=== PATIENT | male | born 1980 | race Caucasian/White ===

== ENCOUNTER 2022-05-18 10:47 | Inpatient (IN) | payer OTHER ==
[~2022-05-18] VITALS: Ht 157.5 cm; Wt 61.0 kg
[2022-05-18] MEDS ORDERED: ARIP15TA27 PO (11:37)
[2022-05-18] MEDS ORDERED: BENZ2TAB76 PO (11:37)
[2022-05-18 12:04] LABS: BASOPHILS % (AUTO) 1.1 % (0.0-2.0); EOSINOPHILS % (AUTO) 0.7 % (1.0-6.0); HEMATOCRIT 43.8 % (41-53); HEMOGLOBIN 14.8 g/dL (13.5-17.5); LYMPHOCYTES # (AUTO) 0.9 K/uL (1.0-4.8); LYMPHOCYTES % (AUTO) 16.3 % (22.0-44.0); MEAN CORPUSCULAR HEMOGLOBIN 31.1 pg (26.0-34.0); MEAN CORPUSCULAR HGB CONC 33.7 G/dL (31.0-37.0); MEAN CORPUSCULAR VOLUME 92 fL (80-100); MONOCYTES # (AUTO) 0.4 K/uL (0.1-1.0); NEUTROPHILS # (AUTO) 4.3 K/uL (1.8-7.7); NEUTROPHILS % (AUTO) 74.9 % (40.0-70.0); PLATELET COUNT (AUTO) 178 K/uL (150-450); RED BLOOD CELL COUNT(AUTO) 4.74 MIL/uL (4.50-5.90); RED CELL DISTRIBUTION WIDTH 13.4 % (11.5-14.5)
[2022-05-18 12:19] LABS: ANION GAP 6 mmol/L (8-16); CALCIUM, TOTAL 8.8 mg/dL (8.8-10.5); CARBON DIOXIDE 28 mmol/L (22-29); CHLORIDE 103 mmol/L (98-107); CREATININE 0.78 mg/dL (0.60-1.30); GLUCOSE,RANDOM 91 mg/dL (70-110); SODIUM SERUM 137 mmol/L (136-145); UREA NITROGEN, BLOOD 13 mg/dL (7-18)
[2022-05-18 12:21] LABS: GLOMERULAR FILTR. RATE CALC > 60 mL/min (>60)
[2022-05-18 12:26] LABS: ALANINE AMINOTRANSFERASE 22 U/L (12-78); ALBUMIN 4.2 g/dL (3.4-5.0); ALKALINE PHOSPHATASE 37 U/L (46-116); ASPARTATE AMINOTRANSFERASE 19 U/L (15-37); BILIRUBIN,TOTAL 0.5 mg/dL (0.1-1.0); TOTAL PROTEIN, SERUM 6.8 g/dL (6.4-8.2)
[2022-05-18] MEDS ORDERED: ONDANSETRON HCL 4 MG TABLET PO PRN (12:45)
[2022-05-18] MEDS ORDERED: MAGNESIUM HYDROXIDE SUSPENSION 30 ML UDCUP PO PRN (12:45)
[2022-05-18] MEDS ORDERED: MAG HYDROX/AL HYDROX/SIMETH ES 30 ML SUSPENSION UDCUP PO PRN (12:45)
[2022-05-18] MEDS ORDERED: ALBUTEROL SULFATE HFA 90 MCG/PUFF 8 GM INHALER IH PRN (12:45)
[2022-05-18] MEDS ORDERED: DOCUSATE SODIUM 100 MG CAPSULE PO PRN (12:45)
[2022-05-18] MEDS ORDERED: GuaiFENesin/D-METHORPHAN [SUGAR-FREE] 200-20MG/10 ML SYRUP UDCUP PO PRN (12:45)
[2022-05-18] MEDS ORDERED: PETROLATUM,WHITE 28 GM JELLY TP PRN (12:45)
[2022-05-18] MEDS ORDERED: IBUPROFEN 400 MG TABLET PO PRN (12:45)
[2022-05-18 14:45] LABS: COVID AG,FIA SOURCE NASOPHARYNGEAL
[2022-05-18 20:08] VITALS: BP 127/69
[2022-05-18] MEDS: ARIPiprazole 15 MG TABLET PO SCH (20:57)
[2022-05-18] MEDS: BENZTROPINE MESYLATE 2 MG TABLET PO SCH (20:57)
[2022-05-18 22:33] LABS: AMPHET/METH SCREEN,URINE NEGATIVE (NEGATIVE); BARBITURATE SCREEN, URINE NEGATIVE (NEGATIVE); BENZODIAZEPINES SCREEN,URINE NEGATIVE (NEGATIVE); CANNABINOID SCREEN,URINE NEGATIVE (NEGATIVE); COCAINE SCREEN,URINE NEGATIVE (NEGATIVE); METHADONE SCREEN, URINE NEGATIVE (NEGATIVE); OPIATE SCREEN,URINE NEGATIVE (NEGATIVE)
[2022-05-18 22:35] LABS: PHENCYCLIDINE SCREEN,URINE NEGATIVE (NEGATIVE)
[2022-05-19] MEDS: ACETAMINOPHEN 325 MG TABLET PO PRN ×3 (01:35→22:54)
[2022-05-19 04:06] VITALS: BP 108/72
[2022-05-19 07:50] VITALS: BP 110/74
[2022-05-19] MEDS: ARIPiprazole 15 MG TABLET PO SCH ×2 (08:55→20:21)
[2022-05-19] MEDS: BENZTROPINE MESYLATE 2 MG TABLET PO SCH ×2 (08:55→20:21)
[2022-05-19 15:07] VITALS: BP 118/76
[2022-05-19 19:55] VITALS: BP 129/76
[2022-05-19] MEDS ORDERED: MELATONIN 3 MG TABLET PO PRN (22:45)
[2022-05-20 04:53] VITALS: BP 115/83
[2022-05-20] MEDS ORDERED: QUEtiapine FUMARATE 25 MG TABLET PO PRN (07:30)
[2022-05-20 07:37] VITALS: BP 98/73
[2022-05-20] MEDS: ARIPiprazole 15 MG TABLET PO SCH ×2 (08:05→21:00)
[2022-05-20] MEDS: ACETAMINOPHEN 325 MG TABLET PO PRN (08:05)
[2022-05-20] MEDS: BENZTROPINE MESYLATE 2 MG TABLET PO SCH ×2 (08:05→21:00)
[2022-05-20 15:32] VITALS: BP 113/71
[2022-05-20 19:55] VITALS: BP 138/85
[2022-05-21 04:35] VITALS: BP 115/75
[2022-05-21 08:13] VITALS: BP 104/75
[2022-05-21] MEDS: BENZTROPINE MESYLATE 2 MG TABLET PO SCH ×2 (08:45→20:25)
[2022-05-21] MEDS: ARIPiprazole 15 MG TABLET PO SCH ×2 (08:45→20:25)
[2022-05-21 15:49] VITALS: BP 119/74
[2022-05-21] MEDS: ACETAMINOPHEN 325 MG TABLET PO PRN (20:19)
[2022-05-22 05:39] VITALS: BP 116/76
[2022-05-22 07:28] VITALS: BP 120/77
[2022-05-22] MEDS: BENZTROPINE MESYLATE 2 MG TABLET PO SCH ×2 (09:00→21:00)
[2022-05-22] MEDS: ARIPiprazole 15 MG TABLET PO SCH ×2 (09:00→21:00)
[2022-05-22 15:03] VITALS: BP 124/78
[2022-05-22] MEDS: ACETAMINOPHEN 325 MG TABLET PO PRN (16:41)
[2022-05-22 19:52] VITALS: BP 123/62
[2022-05-23 04:55] VITALS: BP 112/64
[2022-05-23 08:30] VITALS: BP_SYST 124; BP_SYST 98; BP_DIAS 74; BP_DIAS 84
[2022-05-23] MEDS: BENZTROPINE MESYLATE 2 MG TABLET PO SCH (09:00)
[2022-05-23] MEDS: ARIPiprazole 15 MG TABLET PO SCH (09:00)
[2022-05-23] MEDS ORDERED: ACET-2247 PO (09:46)
[2022-05-23] MEDS ORDERED: IBUP-1506 PO (10:18)
[2022-05-23] MEDS ORDERED: MAG-136 PO (10:19)
[2022-05-23] MEDS ORDERED: MAGN-169 PO (10:20)
== END 2022-05-23 11:58 | DRG 885 ==
LOC: EMS 10:51 → 6S 17:59
PROVIDERS: ADMIT Psychiatry & Neurology Child & Adolescent Psychiatry; ATTEND Psychiatry & Neurology Child & Adolescent Psychiatry
DX: F20.9 Schizophrenia, unspecified (principal); F12.10 Cannabis abuse, uncomplicated; F17.200 Nicotine dependence, unspecified, uncomplicated; F31.9 Bipolar disorder, unspecified; F41.9 Anxiety disorder, unspecified; Z20.822 Contact with and (suspected) exposure to COVID-19; Z91.19 Patient's noncompliance with other medical treatment and regimen; Z79.899 Other long term (current) drug therapy; Z71.6 Tobacco abuse counseling
CPT/HCPCS: 80053; 85025; 99285; G0480

== ENCOUNTER 2022-07-26 15:57 | Inpatient (IN) | payer OTHER ==
[~2022-07-26] VITALS: Ht 160 cm; Wt 63.6 kg
[~2022-07-26 15:57] MED LIST: ACET-2247 PO; IBUP-1506 PO; MAG-136 PO; MAGN-169 PO
[2022-07-26 17:16] LABS: BASOPHILS % (AUTO) 0.9 % (0.0-2.0); EOSINOPHILS % (AUTO) 0.9 % (1.0-6.0); HEMATOCRIT 44.1 % (41-53); HEMOGLOBIN 14.9 g/dL (13.5-17.5); LYMPHOCYTES # (AUTO) 1.3 K/uL (1.0-4.8); LYMPHOCYTES % (AUTO) 21.4 % (22.0-44.0); MEAN CORPUSCULAR HEMOGLOBIN 31.2 pg (26.0-34.0); MEAN CORPUSCULAR HGB CONC 33.7 G/dL (31.0-37.0); MEAN CORPUSCULAR VOLUME 93 fL (80-100); MONOCYTES # (AUTO) 0.4 K/uL (0.1-1.0); MONOCYTES % (AUTO) 7.1 % (2.0-9.0); NEUTROPHILS # (AUTO) 4.3 K/uL (1.8-7.7); NEUTROPHILS % (AUTO) 69.7 % (40.0-70.0); PLATELET COUNT (AUTO) 218 K/uL (150-450); RED BLOOD CELL COUNT(AUTO) 4.77 MIL/uL (4.50-5.90); RED CELL DISTRIBUTION WIDTH 12.9 % (11.5-14.5)
[2022-07-26 17:26] LABS: ANION GAP 8 mmol/L (8-16); CALCIUM, TOTAL 9.4 mg/dL (8.8-10.5); CARBON DIOXIDE 28 mmol/L (22-29); CHLORIDE 104 mmol/L (98-107); CREATININE 1.07 mg/dL (0.60-1.30); GLUCOSE,RANDOM 99 mg/dL (70-110); POTASSIUM 3.7 mmol/L (3.5-5.1); SODIUM SERUM 140 mmol/L (136-145); UREA NITROGEN, BLOOD 13 mg/dL (7-18)
[2022-07-26 17:30] LABS: GLOMERULAR FILTR. RATE CALC > 60 mL/min (>60)
[2022-07-26 17:32] LABS: ALANINE AMINOTRANSFERASE 20 U/L (12-78); ALBUMIN 4.2 g/dL (3.4-5.0); ALKALINE PHOSPHATASE 55 U/L (46-116); ASPARTATE AMINOTRANSFERASE 17 U/L (15-37); BILIRUBIN,TOTAL 0.3 mg/dL (0.1-1.0); TOTAL PROTEIN, SERUM 7.6 g/dL (6.4-8.2)
[2022-07-26] MEDS ORDERED: ACETAMINOPHEN 325 MG TABLET PO PRN ×2 (18:30→20:00)
[2022-07-26] MEDS ORDERED: ONDANSETRON HCL 4 MG/2 ML VIAL IVP PRN (18:30)
[2022-07-26 18:34] LABS: COVID AG,FIA SOURCE NASOPHARYNGEAL
[2022-07-26 18:58] VITALS: BP 113/81
[2022-07-26] MEDS ORDERED: MAGNESIUM HYDROXIDE SUSPENSION 30 ML UDCUP PO PRN (20:00)
[2022-07-26] MEDS ORDERED: CloNIDine HCL 0.1 MG TABLET PO PRN (20:00)
[2022-07-26] MEDS ORDERED: MAG HYDROX/AL HYDROX/SIMETH ES 30 ML SUSPENSION UDCUP PO PRN (20:00)
[2022-07-26] MEDS ORDERED: LOPERAMIDE HCL 2 MG CAPSULE PO PRN (20:00)
[2022-07-26] MEDS ORDERED: GuaiFENesin/D-METHORPHAN [SUGAR-FREE] 200-20MG/10 ML SYRUP UDCUP PO PRN (20:00)
[2022-07-26] MEDS ORDERED: NICOTINE 14 MG/24 HOUR PATCH TD PRN (20:00)
[2022-07-26] MEDS ORDERED: IBUPROFEN 400 MG TABLET PO PRN (20:00)
[2022-07-26] MEDS ORDERED: ONDANSETRON HCL 4 MG TABLET PO PRN (20:00)
[2022-07-26] MEDS ORDERED: ALBUTEROL SULFATE HFA 90 MCG/PUFF 8 GM INHALER IH PRN (20:00)
[2022-07-26] MEDS ORDERED: DOCUSATE SODIUM 100 MG CAPSULE PO PRN (20:00)
[2022-07-26] MEDS ORDERED: PETROLATUM,WHITE 28 GM JELLY TP PRN (20:00)
[2022-07-27 05:55] VITALS: BP 126/87
[2022-07-27 06:04] LABS: AMPHET/METH SCREEN,URINE NEGATIVE (NEGATIVE); BARBITURATE SCREEN, URINE NEGATIVE (NEGATIVE); BENZODIAZEPINES SCREEN,URINE NEGATIVE (NEGATIVE); CANNABINOID SCREEN,URINE NEGATIVE (NEGATIVE); COCAINE SCREEN,URINE NEGATIVE (NEGATIVE); METHADONE SCREEN, URINE NEGATIVE (NEGATIVE); OPIATE SCREEN,URINE NEGATIVE (NEGATIVE)
[2022-07-27 06:13] LABS: PHENCYCLIDINE SCREEN,URINE NEGATIVE (NEGATIVE)
[2022-07-27 08:18] VITALS: BP 103/74
[2022-07-27 15:29] VITALS: BP 121/68
[2022-07-27] MEDS: RisperiDONE 1 MG TABLET PO SCH (21:00)
[2022-07-27 21:57] VITALS: BP 104/54
[2022-07-28 06:18] VITALS: BP 120/75
[2022-07-28 08:00] VITALS: BP 107/79
[2022-07-28] MEDS: RisperiDONE 1 MG TABLET PO SCH ×3 (08:42→23:07)
[2022-07-28 16:00] VITALS: BP 107/79
[2022-07-28 19:46] VITALS: BP 106/60
[2022-07-29 04:14] VITALS: BP 101/64
[2022-07-29 07:55] VITALS: BP 118/75
[2022-07-29] MEDS: RisperiDONE 1 MG TABLET PO SCH (08:35)
[2022-07-29 15:26] VITALS: BP 110/64
[2022-07-29] MEDS ORDERED: RISP1TAB48 PO (15:42)
== END 2022-07-29 17:00 | DRG 885 ==
LOC: EMS 16:05 → 6S 18:20 → EMS 18:37
PROVIDERS: ADMIT Internal Medicine; ATTEND Internal Medicine
DX: F20.9 Schizophrenia, unspecified (principal); Z20.822 Contact with and (suspected) exposure to COVID-19; F17.200 Nicotine dependence, unspecified, uncomplicated; Z79.899 Other long term (current) drug therapy
CPT/HCPCS: 80053; 85025; 99285; G0480